=== PATIENT | male | born 1995 | race Caucasian/White ===

== ENCOUNTER 2019-04-19 09:18 | Emergency (ER) | payer SELFPAY ==
[2019-04-19] MEDS: DIPH,PERTUSS(ACELL),TET VAC/PF 0.5 ML DISP.SYRIN IM ONE (09:52)
[2019-04-19] MEDS: Lidocaine 1% 5ml 10 MG/ML VIAL IJ ONE (09:53)
[2019-04-19] MEDS: SODIUM BICARBONATE 2.4 MEQ/5 ML VIAL INJ ONE (09:54)
--- NOTE | 2019-04-19 10:17 | ED Physician Documentation ---
General Adult - HISTORIAN Historian: patient - HPI Stated Complaint: eyebrow lac Chief Complaint: Laceration/Recheck/Suture Additional Information: Patient presents to ED with 2 cm laceration to right eyebrow. Patient states he was going up some stairs, tripped and hit his head causing the laceration. He denies loss of consciousness. Patient reports injuring his knee playing football on Thursday, he was having difficulty navigating the stairs due to this and fell. He is not current on tetanus vaccine. Onset: minutes (30) Timing: still present Severity: moderate - ROS CONST: no problems EYES/ENT: none CVS/RESP: none GI/: none MS/SKIN/LYMPH: none - PAST HX Past History: none Other History: none Surgeries/Procedures: none Allergies/Adverse Reactions: Allergies Allergy/AdvReac Type Severity Reaction Status Date / Time No Known Allergies Allergy Unverified 04/19/19 09:39 Home Medications: Ambulatory Orders Medication Instructions Recorded NK 04/19/19 - SOCIAL HX Smoking History: non-smoker Alcohol Use: none Drug Use: none - FAMILY HX Family History: No - VITAL SIGNS Vital Signs: Vital Signs Temp Pulse Resp BP Pulse Ox 97.3 F L 80 16 110/70 99 04/19/19 09:25 04/19/19 10:25 04/19/19 10:25 04/19/19 10:25 04/19/19 10:25 - REVIEWED ASSESSMENTS Nursing Assessment Reviewed: Yes Vitals Reviewed: Yes Procedures Wound Location: head (right eyebrow) Wound's Depth, Shape: superficial, linear Wound Explored: no foreign body removed Irrigated w/ Saline (ccs): 200 Betadine Prep?: Yes Anesthesia: 1% Lidocaine Volume of Anesthetic: 5 Wound Debrided: minimal Wound Repaired With: sutures Suture Size/Type: 6:0 Number of Sutures: 7 Sterile Dressing Applied?: No Splint Applied?: No Sling Applied?: No ED Results Lab/Radiology - Orders Orders: ED Orders Category Date Time Status Cleanse with NS and Chlorhexid 1T Care 04/19/19 09:39 Active Diph,Pertuss(Acell),Tet Vac/Pf [Adacel] Med 04/19/19 09:38 Discontinued 0.5 ml IM .ONCE ONE Lidocaine 1% 5ml [Xylocaine] Med 04/19/19 09:38 Discontinued 50 mg IJ NOW ONE Sodium Bicarbonate [Neut] Med 04/19/19 09:39 Discontinued 2.4 meq INJ NOW ONE General Adult Physical Exam - PHYSICAL EXAM GENERAL APPEARANCE: no distress EENT: JULIAN, other (2 cm laceration to right eyebrow) NECK: normal inspection, supple CVS: reg rate & rhythm, heart sounds normal ABDOMEN: soft, normal bowel sounds BACK: normal inspection, no CVA tenderness SKIN: warm/dry, normal color EXTREMITIES: non-tender, no edema NEURO: oriented X3, motor nml, mood/affect nml Discharge Clincal Impression: Laceration of right eyebrow Qualifiers: Encounter type: initial encounter Qualified Code(s): S01.111A - Laceration without foreign body of right eyelid and periocular area, initial encounter Referrals: Primary Doctor,No [Primary Care Provider] - 2 Days Additional Instructions: 1. Wash laceration twice daily with soapy water, pat dry immediately 2. No swimming, hot tubs or baths. Shower ok 3. Tylenol and/or Ibuprofen as needed for pain 4. Follow up with PCP in 7-10 days for suture removal 5. Return to ER for new or worsening symptoms Condition: Stable Disposition: 01 HOME, SELF-CARE Decision to Admit: NO Date of Decison to Admit: 04/19/19 Decision Time: 10:19
[2019-04-19 10:32] VITALS: BP 110/70
== END 2019-04-19 10:25 | disposition home or self-care (01) ==
LOC: ED 09:18
DX: S01.111A Laceration without foreign body of right eyelid and periocular area, initial encounter (principal); W10.9XXA Fall (on) (from) unspecified stairs and steps, initial encounter; Y93.01 Activity, walking, marching and hiking
CPT/HCPCS: 12011; 90715; 96374; 99282; 99284